=== PATIENT | male | born 1990 | race Caucasian/White ===

== ENCOUNTER 2021-12-01 21:46 | Emergency (ER) | payer SELFPAY ==
[~2021-12-01] VITALS: Ht 172.7 cm; Wt 104.3 kg
--- NOTE | 2021-12-01 21:46 | NUR ---
MISHEL WORTHINGTON WITH [facility]. REPORT FROM EMT. C/O SOB" PAIN RIGHT LUNG" WHILE DRIVING HOME. "PRESSURE RIGHT CHEST" NO PAIN OR SOB ON ARRIVAL. PT A/O X4 , CLEAR SPEECH. NO DYSPNEA OBSERVED ON ARRIVAL. WAS AT [facility] LAST SATURDAY FOR ASTHMA SYMPTOMS, COUGH, WHEEZING. GIVEN BREATHING TREATMENT IN ER, STEROID PILL. 2 DIFFERANT INHALERS FOR HOME USE. VSS PT PENDING ER EVAL/ EXAM.
[2021-12-01 21:51] VITALS: BP_SYST 135
--- NOTE | 2021-12-01 22:54 | NUR ---
PATIENT AGGRAVATED AND STATES "I CAME IN AN AMBULANCE SO I DON'T KNOW WHY I GOT PUT HERE WITH ALL THESE PEOPLE". STATES, "CAN'T I JUST GET AN INHALER?" EXPLAINED THE ER PROCESS AND HOW PATIENT MUST BE SEEN BY AN ER PHYSICIAN PRIOR TO ANY MEDICATION GIVEN. PATIENT UPSET AND STATED "I WILL JUST LEAVE THEN!" PATIENT SEEN LEAVING PREMISES.
--- NOTE | 2021-12-01 22:56 | NUR ---
PATIENT LEFT WITHOUT BEING SEEN
== END 2021-12-01 22:56 | disposition left against medical advice (07) ==
LOC: SED 21:46
DX: R06.02 Shortness of breath (principal); Z53.21 Procedure and treatment not carried out due to patient leaving prior to being seen by health care provider